=== PATIENT | male | born 1955 | race Caucasian/White ===

== ENCOUNTER 2023-10-08 15:57 | Emergency (ER) | payer OTHER ==
[2023-10-08 16:10] VITALS: PULSE 69; RESP 18; TEMP 98; BMI 29.6
[2023-10-08] MEDS ORDERED: ACETAMINOPHEN 1000 MG/100 ML BAG IVPB ONE (16:22)
[2023-10-08] MEDS ORDERED: METOCLOPRAMIDE HCL INJECTION 10 MG/2 ML VIAL IVPUSH ONE (16:22)
[2023-10-08] MEDS ORDERED: SODIUM CHLORIDE 0.9% 500 ML INFUS.BAG IV ONE (16:23)
[2023-10-08] MEDS ORDERED: MECLIZINE HCL 25 MG TABLET (FP) PO ONE (16:23)
[2023-10-08] MEDS ORDERED: ACETAMINOPHEN INJECTION 100 ML IVPB ONE (16:29)
[2023-10-08] MEDS ORDERED: MECLIZINE HCL 25 MG TABLET (FP) ONE (16:29)
[2023-10-08] MEDS ORDERED: METOCLOPRAMIDE HCL INJECTION 10 MG/2 ML VIAL ONE (16:29)
[2023-10-08 17:09] LABS: HEMATOCRIT 41.9 % (35.4-49); HEMOGLOBIN 14.1 G/dL (11.7-16.9); MCHC 33.6 g/dl (32.0-35.9); MEAN CELL VOLUME 89.4 fl (80-96); MEAN PLT VOLUME 9.1 fl (7.5-11.1); PLATELET COUNT 206.8 10^3/uL (134-434); RBC 4.69 10^6/uL (4.00-5.60); RDW 14.2 % (11.9-15.9); WHITE BLOOD COUNT 10.6 10^3/uL (4.0-10.8)
[2023-10-08 17:18] LABS: ALBUMIN 3.9 g/dl (3.4-5.0); BILIRUBIN,TOTAL 0.7 mg/dl (0.2-1); POTASSIUM 3.9 mmol/L (3.5-5.1); TOT PROT 6.1 g/dl (6.4-8.2)
[2023-10-08 17:56] VITALS: BP 160/86
[2023-10-08 18:01] LABS: PLATELET ESTIMATE ADEQUATE
== END 2023-10-08 17:56 | disposition home or self-care (01) ==
LOC: FER 15:57
PROC: 3E033NZ Introduction of Analgesics, Hypnotics, Sedatives into Peripheral Vein, Percutaneous Approach (ICD-10-PCS; principal; 2023-10-08)
PROC: 3E033GC Introduction of Other Therapeutic Substance into Peripheral Vein, Percutaneous Approach (ICD-10-PCS; 2023-10-08)
DX: R42 Dizziness and giddiness (principal); R11.2 Nausea with vomiting, unspecified; R09.81 Nasal congestion
CPT/HCPCS: 36415; 71045-TC-FY; 80053; 85025; 93005; 99285-25

== ENCOUNTER 2024-01-08 04:38 | Day surgery (SDC) | payer OTHER ==
[2024-01-07 09:40] VITALS: BMI 297.7
[2024-01-08 09:23] VITALS: TEMP 97.6
[2024-01-08 09:49] VITALS: BP 125/61; PULSE 45; RESP 16
== END 2024-01-08 10:05 | disposition home or self-care (01) ==
LOC: JASU-ENDO 04:38
PROVIDERS: ATTEND Internal Medicine Gastroenterology
PROC: 0DBL8ZX Excision of Transverse Colon, Via Natural or Artificial Opening Endoscopic, Diagnostic (ICD-10-PCS; 2024-01-08)
PROC: 0DBH8ZX Excision of Cecum, Via Natural or Artificial Opening Endoscopic, Diagnostic (ICD-10-PCS; principal; 2024-01-08 09:00)
DX: Z12.11 Encounter for screening for malignant neoplasm of colon (principal); D12.3 Benign neoplasm of transverse colon; D12.0 Benign neoplasm of cecum; K64.8 Other hemorrhoids; Z86.010 Personal history of colon polyps
CPT/HCPCS: 88305-TC

== ENCOUNTER 2025-06-29 10:17 | Day surgery (SDC) | payer OTHER ==
[2025-06-29 10:34] LABS: ABSOLUTE IMMATURE GRANULOCYTES 0.01 x10^3/uL (0.0-0.031); BASOPHILS # 0.02 x10^3/uL (0.01-0.08); EOSINOPHIL % 1.7 % (0.8-7.0); EOSINOPHILS # 0.11 x10^3/uL (0.04-0.54); MCHC 31.2 g/dl (32.3-36.5); MEAN CELL VOLUME 87.4 fl (79.0-92.2); MEAN PLT VOLUME 11.1 fl (9.4-12.4); MONOCYTE # 0.77 x10^3/uL (0.30-0.82); MONOCYTE % 12.2 % (5.3-12.2); RDW 14.5 % (12.2-16.4)
[2025-06-29 10:58] LABS: CO2 29.0 mmol/L (21-32); GLUCOSE,RANDOM 104.0 mg/dL (74-106)
[2025-06-29 11:01] LABS: CREATININE 1.3 mg/dL (0.55-1.3); SGOT/AST 26.0 U/L (15-37); SGPT/ALT 34.0 U/L (13-61)
[2025-06-29 11:02] LABS: TOT PROT 6.4 g/dl (6.4-8.2)
[2025-06-29 11:04] LABS: ALK PHOS 97.0 U/L (45-117)
[2025-06-29 11:11] LABS: LDH 167.0 U/L (87-246)
[2025-06-29] MEDS: SODIUM CHLORIDE 250 ML IV ONE (11:14)
[2025-06-29] MEDS: DEXAMETHASONE SODIUM PHOSPHATE 12 MG, DIPHENHYDRAMINE 25 MG in SODIUM CHLORIDE 100 ML IVPB ONE (11:15)
[2025-06-29] MEDS: ACETAMINOPHEN 325 MG TABLET (FP) PO ONE (12:26)
[2025-06-29] MEDS: RITUXIMAB PVVR IVPB ONE (12:58)
[2025-06-29] MEDS: SODIUM CHLORIDE IVPB ONE (12:58)
[2025-06-29 13:17] VITALS: BP 115/66; PULSE 44; RESP 18; TEMP 97.9
== END 2025-06-29 18:38 | disposition home or self-care (01) ==
LOC: JONCCHEMO 10:17 → J7W 10:29 → JONCCHEMO 18:38
PROVIDERS: ATTEND Internal Medicine Hematology & Oncology
DX: Z51.11 Encounter for antineoplastic chemotherapy (principal); C82.90 Follicular lymphoma, unspecified, unspecified site
CPT/HCPCS: 36415; 80053; 83615; 83735; 84550; 85025; Q5119